=== PATIENT | female | born 1960 | race Caucasian/White ===

== ENCOUNTER → 2016-10-08 | Outpatient (CLI) | payer OTHER ==
--- NOTE | 2016-10-10 10:55 | MM ---
Reason for exam: screening (asymptomatic). Last mammogram was performed 2 years and 3 months ago. History: Patient is postmenopausal. Benign excisional biopsy of the right breast. Physical Findings: A clinical breast exam by your physician is recommended on an annual basis and results should be correlated with mammographic findings. MG Screening Mammo w CAD Bilateral CC and MLO view(s) were taken. Prior study comparison: July 08, 2014, mammogram, performed at [facility]. The breast tissue is heterogeneously dense. This may lower the sensitivity of mammography. Benign calcifications. There is no discrete abnormality. No significant changes when compared with prior studies. ASSESSMENT: Benign, BI-RAD 2 RECOMMENDATION: Routine screening mammogram of both breasts in 1 year.
== END | disposition home or self-care (01) ==
LOC: RADMAMWWP 13:42
PROVIDERS: ATTEND Family Medicine
DX: Z12.31 Encounter for screening mammogram for malignant neoplasm of breast (principal)

== ENCOUNTER → 2019-01-12 | Outpatient (CLI) | payer OTHER ==
[2019-01-12 16:53] VITALS: BP 146/85; PULSE 83; TEMP 98.6; BMI 42.0
--- NOTE | 2019-01-12 16:59 | P.HPBAR ---
Bariatric H&P - History & Physicial H&P Date: 01/12/19 History & Physicial: Visit/CC: Initial sleeve consult Patient initial contact: Initial weight: 122.606 kg Initial weight in pounds: 270.30 Height: 5 ft 7.25 in Initial BMI: 42.0 Last weight: Current weight: 122.606 kg Current weight in pounds: 270.30 Current BMI: 42.0 [place] body weight (based on NIH guidelines): 61.802 kg Excess body weight loss: 0.0% The patient is a 58 year-old F who presents for Bariatric Assessment. Patient presents today for initial consultation. She is mildly obese. Her BMI is 42. She is requesting a sleeve gastrectomy. He has multiple comorbidities related to morbid obesity. Past Medical History Past Medical History: Fibromyalgia, GERD/Reflux, Hypertension History of Any Multi-Drug Resistant Organisms: None Reported Past Surgical History: Section, Cholecystectomy Additional Past Surgical History / Comment(s): x3 (1975, 1978, 1979), pancreatic bile duct repair Past Anesthesia/Blood Transfusion Reactions: Postoperative Nausea & Vomiting (PONV) Additional Past Anesthesia/Blood Transfusion Reaction / Comm: No blood transfusion to date Smoking Status: Current every day smoker Surgical - Exam Vital Signs Temp Pulse BP 98.6 F 83 146/85 01/12/19 16:49 01/12/19 16:49 01/12/19 16:49 - General well developed, well nourished, no distress - Eyes PERRL - ENT normal pinna - Neck no masses - Respiratory normal expansion - Cardiovascular Rhythm: regular - Abdomen Abdomen: soft, non tender Bariatric Assessment & Plan Plan: Morbid obesity with severe comorbidities. Patient is an excellent understanding of sleeve gastrectomy. We went over the risks and benefits of procedure. Patient scheduled for EGD. She'll follow-up after this has been performed. Bariatric Checklist Checklist: Plan: Checklist: EGD: 1. Hiatal hernia: 2. H. Pylori: HgbA1c: Vitamin D: Smoking: Current every day smoker Primary care physician referral: Dr. Ojeda ([place]) Psychiatry clearance: Cardiology clearance: Sleep study: Diet journal: VTE risk score: VTE risk level: Rehab needs at discharge:
== END | disposition home or self-care (01) ==
LOC: BARWHC3 15:20
PROVIDERS: ATTEND Surgery
DX: E66.01 Morbid (severe) obesity due to excess calories (principal); F17.200 Nicotine dependence, unspecified, uncomplicated; Z68.41 Body mass index [BMI] 40.0-44.9, adult; Z90.49 Acquired absence of other specified parts of digestive tract; Z98.890 Other specified postprocedural states
CPT/HCPCS: 99211

== ENCOUNTER → 2019-02-13 | Outpatient (CLI) | payer OTHER ==
[2019-02-13 11:22] LABS: HCT 43.2 % (34.0-46.0); HGB 14.6 gm/dL (11.4-16.0); MCH 31.3 pg (25.0-35.0); MCHC 33.9 g/dL (31.0-37.0); MCV 92.3 fL (80.0-100.0); Platelet Count 179 k/uL (150-450); RBC 4.67 m/uL (3.80-5.40); RDW 12.5 % (11.5-15.5); WBC 6.2 k/uL (3.8-10.6)
[2019-02-13 15:54] LABS: T4, Free (Free Thyroxine) 1.2 ng/dL (0.80-1.80)
[2019-02-13 16:17] LABS: % Iron Saturation 23.42 (12.00-45.00); African American GFR (CKD) 114.8 (60.0-200.0); Albumin 4.2 g/dL (3.80-4.90); Albumin/Globulin Ratio 1.62 (1.60-3.17); Anion Gap 8.4 mmol/L (4.00-12.00); BUN/Creat Ratio 26.67 Ratio (12.00-20.00); Calcium 10.7 mg/dL (8.7-10.3); Carbon Dioxide 27.6 mmol/L (21.6-31.8); Chol/HDL Ratio 4.88; Globulin 2.6 g/dL (1.6-3.3); LDL Cholesterol,Calculated 132.4 mg/dL (0.0-131.0); Potassium 4.6 mmol/L (3.5-5.5); Total Bilirubin 0.5 mg/dL (0.2-1.2); Total Protein 6.8 g/dL (6.2-8.2); VLDL Calculation 61.6 mg/dL (5.00-40.00)
[2019-02-13 16:47] LABS: Hemoglobin A1C 8.4 % (4.0-6.0)
== END | disposition home or self-care (01) ==
LOC: LABWHC1 10:26
PROVIDERS: ATTEND Surgery
DX: D50.9 Iron deficiency anemia, unspecified (principal); E44.0 Moderate protein-calorie malnutrition; E55.9 Vitamin D deficiency, unspecified; E11.42 Type 2 diabetes mellitus with diabetic polyneuropathy; E03.9 Hypothyroidism, unspecified
CPT/HCPCS: 36415; 80053; 80061; 82306; 82607; 83036; 83540; 83550; 84425; 84439; 84443; 85027; 93005

== ENCOUNTER → 2019-02-13 | Day surgery (SDC) | payer OTHER ==
[2019-02-11 11:01] VITALS: BMI 39.2
[~2019-02-13] MED LIST: KETAMINE 10 MG/ML 20 ML VIAL ONE; LACTATED RINGERS 1,000 ML IV SCH; LIDOCAINE 1% 20 ML VIAL (10MG/ML) FOR IV START INTRADERMA ONE; LIDOCAINE 1% INJ 10MG/ML (20 ML MDV) ONE; MIDAZOLAM 2 MG/2 ML VIAL ONE; PROPOFOL 10 MG/ML 20 ML VIAL IV ONE; fentaNYL (PF) 50 MCG/ML 2 ML AMP ONE
[2019-02-13 12:01] LABS: Glucose,Whole Blood 221 mg/dL (75-99)
[2019-02-13 12:08] VITALS: TEMP 97.7
--- NOTE | 2019-02-13 12:56 | P.GSHP ---
History of Present Illness H&P Date: 02/13/19 Chief Complaint: GERD, morbid obesity This a 4-year-old female who presents today for EGD. Patient complaints of GERD. She was obese. Her BMI is 40. Past Medical History Past Medical History: Diabetes Mellitus, Fibromyalgia, GERD/Reflux, Hypertension, Osteoarthritis (OA) Additional Past Medical History / Comment(s): "Loses balance, has equilibrium problem." History of Any Multi-Drug Resistant Organisms: None Reported Past Surgical History: Section, Cholecystectomy Additional Past Surgical History / Comment(s): Section X3, pancreatic bile duct repair. Past Anesthesia/Blood Transfusion Reactions: Motion Sickness, Postoperative Nausea & Vomiting (PONV) Additional Past Anesthesia/Blood Transfusion Reaction / Comment(s): No blood transfusion to date. Past Psychological History: Depression Smoking Status: Never smoker Past Alcohol Use History: None Reported Past Drug Use History: None Reported - Past Family History Mother Family Medical History: No Reported History Medications and Allergies Home Medications Medication Instructions Recorded Confirmed Type Aspirin EC [Ecotrin Low Dose] 81 mg PO DAILY 01/12/19 02/13/19 History Atenolol 25 mg PO BID 01/12/19 02/13/19 History Furosemide [Lasix] 20 mg PO DAILY 01/12/19 02/13/19 History Hydrocodone/Acetaminophen 1 tab PO Q6H PRN 01/12/19 02/13/19 History [Hydrocodone-Acetamin 7.5-300] Omeprazole 20 mg PO BID 01/12/19 02/13/19 History Sertraline [Zoloft] 100 mg PO DAILY 01/12/19 02/13/19 History Allergies Allergy/AdvReac Type Severity Reaction Status Date / Time latex Allergy Rash/Hives Verified 02/13/19 11:48 Surgical - Exam Vital Signs Temp Pulse Resp BP Pulse Ox 97.7 F 77 20 179/81 96 02/13/19 11:55 02/13/19 11:55 02/13/19 11:55 02/13/19 11:55 02/13/19 11:55 - General well developed, well nourished, no distress - Eyes PERRL - ENT normal pinna - Neck no masses - Respiratory normal expansion - Cardiovascular Rhythm: regular - Abdomen Abdomen: soft, non tender Results - Labs Abnormal Lab Results - Last 24 Hours (Table) 02/13/19 Range/Units 11:59 POC Glucose (mg/dL) 221 H (75-99) mg/dL Assessment and Plan Assessment: GERD, morbid obesity. We'll perform EGD.
--- NOTE | 2019-02-13 13:10 | P.OP ---
Date of Procedure: 02/13/19 Preoperative Diagnosis: GERD Morbid obesity Postoperative Diagnosis: Antral gastritis Mild esophagitis Procedure(s) Performed: EGD Anesthesia: MAC Surgeon: Amor Heath Pathology: other (Antrum, esophagus) Condition: stable Disposition: PACU Description of Procedure: The patient's placed on the endoscopy table in the lateral position. She received IV sedation. The gastroscope placed oropharynx passed in the esophagus and into the stomach. Scope was then placed through the pylorus. The first and second portion of the duodenum appeared normal. Copious then brought back the antrum this. Mildly inflamed. A biopsies performed. Scope was unretroflexed and remainder of the stomach appeared normal. There is no significant hiatal hernia. The GE junction was at 47 is. The distal esophagus appeared mildly inflamed a biopsies or. The proximal esophagus appeared normal. The scope was withdrawn for patient.
[2019-02-13 13:17] VITALS: RESP 18
[2019-02-13 13:29] VITALS: BP 154/97; PULSE 78
== END | disposition home or self-care (01) ==
LOC: ORWHC2ENDO 11:27
PROVIDERS: ATTEND Surgery
DX: K21.0 Gastro-esophageal reflux disease with esophagitis (principal); K29.50 Unspecified chronic gastritis without bleeding; E66.01 Morbid (severe) obesity due to excess calories; E11.9 Type 2 diabetes mellitus without complications; M79.7 Fibromyalgia; I10 Essential (primary) hypertension; M19.90 Unspecified osteoarthritis, unspecified site; R26.89 Other abnormalities of gait and mobility; F32.9 Major depressive disorder, single episode, unspecified; Z68.41 Body mass index [BMI] 40.0-44.9, adult; Z98.890 Other specified postprocedural states; Z90.49 Acquired absence of other specified parts of digestive tract; Z87.898 Personal history of other specified conditions; Z79.82 Long term (current) use of aspirin; Z79.899 Other long term (current) drug therapy; Z79.891 Long term (current) use of opiate analgesic; Z91.040 Latex allergy status; Z97.2 Presence of dental prosthetic device (complete) (partial)
CPT/HCPCS: 88305; 43239; J2250; J2001; J3010; J2704; 36415; 80053; 80061; 82306; 82607; 83036; 83540; 83550; 84425; 84439; 84443; 85027; 93005

== ENCOUNTER → 2019-03-09 | Outpatient (CLI) | payer OTHER ==
[2019-03-09 13:34] VITALS: BP 128/83; PULSE 81; RESP 16; TEMP 98; BMI 42.0
--- NOTE | 2019-04-26 12:59 | P.HPBAR ---
Bariatric H&P - History & Physicial H&P Date: 03/09/19 History & Physicial: Visit/CC: Presurgical Diet Class Patient initial contact: Initial weight: 122.606 kg Initial weight in pounds: 270.30 Height: 5 ft 7.25 in Initial BMI: 42.0 Last weight: Current weight: 122.527 kg Current weight in pounds: 270.13 Current BMI: 42.0 [place] body weight (based on NIH guidelines): 61.802 kg Excess body weight loss: 0.1% The patient is a 58 year-old F who presents for Bariatric Assessment. Patient presents today for presurgical consultation. Patient has had lifetime problems obesity. Her BMI is 42. She has an excellent extensive gastrectomy. We went over the risks and benefits of procedure including conversion to open procedure injury to the stomach liver spleen vagotomy dysphagia recurrent GERD symptoms. Past Medical History Past Medical History: Diabetes Mellitus, Fibromyalgia, GERD/Reflux, Hypertension, Osteoarthritis (OA) Additional Past Medical History / Comment(s): "Loses balance, has equilibrium problem." History of Any Multi-Drug Resistant Organisms: None Reported Past Surgical History: Section, Cholecystectomy Additional Past Surgical History / Comment(s): Section X3, pancreatic bile duct repair. Past Anesthesia/Blood Transfusion Reactions: Motion Sickness, Postoperative Nausea & Vomiting (PONV) Additional Past Anesthesia/Blood Transfusion Reaction / Comm: No blood transfusion to date. Past Psychological History: Depression Additional Psychological History / Comment(s): Takes Sertaline 100 mg daily Smoking Status: Never smoker Past Alcohol Use History: None Reported Past Drug Use History: None Reported - Past Family History Mother Family Medical History: No Reported History Surgical - Exam Vital Signs Temp Pulse Resp BP 98 F 81 16 128/83 03/09/19 13:31 03/09/19 13:31 03/09/19 13:31 03/09/19 13:31 - General well developed, well nourished, no distress - Eyes PERRL - Abdomen Abdomen: soft, non tender Bariatric Assessment & Plan Plan: Morbid obesity, BMI 42. Patient has an excellent understanding of sedation. She will be scheduled for sleeve gastrectomy once her insurance authorization requirements have been met. Bariatric Checklist Checklist: Plan: Checklist: EGD: 1. Hiatal hernia: 2. H. Pylori: HgbA1c: Vitamin D: Smoking: Never smoker Primary care physician referral: Dr. Ojeda ([place]) Psychiatry clearance: Cardiology clearance: Sleep study: Diet journal: VTE risk score: VTE risk level: Rehab needs at discharge:
== END | disposition home or self-care (01) ==
LOC: BARWHC3 08:41
PROVIDERS: ATTEND Surgery
DX: E66.01 Morbid (severe) obesity due to excess calories (principal); Z68.41 Body mass index [BMI] 40.0-44.9, adult
CPT/HCPCS: 97804; 99211